=== PATIENT | female | born 1985 | race Caucasian/White ===

== ENCOUNTER 2021-01-30 13:36 | Emergency (ER) | payer SELFPAY ==
[~2021-01-30] VITALS: Ht 170.1 cm; Wt 74.8 kg
--- NOTE | 2021-01-30 14:25 | ED General ---
General Chief Complaint: Cough/Cold/Flu Symptoms Stated Complaint: ANXIETY Nursing Triage Note: Patient presents to the ED with c/o racing heart, fever, cough, fatigue, and body aches. She reports symptoms began on Monday. She states "I felt like my heart was racing". Reports it feels like anxiety. Source of Information: Patient History of Present Illness Date Seen by Provider: Jan 30, 2021 Time Seen by Provider: 13:41 Initial Comments 35-year-old female presenting with her and child due to concerns of her heart racing and being sick with fever, cough, fatigue, body aches since Monday. She has a underlying anxiety disorder anyway. She has not been feeling well and not drinking enough fluid. Her father had cardiomyopathy and she is worried that she has heart problems too. She had taken a medication from the [facility] that was in [place] medication with phenylephrine in it. She has felt like her heart was racing today and that made her anxious and she felt like "I was going to ". She tried to calm down at home but it was not helping so finally her , a local precinct police lieutenant, brought her and their daughter who was sick with similar symptoms to the emergency department Timing/Duration: 4-5 Days Severity: Moderate Modifying Factors: worse with Medication Associated Systoms: Chest Pain (from coughing), Cough, Diaphoresis, Fever/Chills, Headaches, Loss of Appetite, Malaise; No Nausea/Vomiting, No Rash, No Seizure; Shortness of Air; No Syncope; Weakness Allergies and Home Medications Allergies Coded Allergies: latex (Verified Allergy, Unknown, 01/30/21) Patient Home Medication List Home Medication List Reviewed: Yes Review of Systems Review of Systems Constitutional: chills, fever, malaise EENTM: hoarseness, nose congestion; No ear discharge, No hearing loss, No ear pain, No blurred vision, No double vision, No epistaxis, No nose pain, No throat pain Respiratory: cough, short of breath; No stridor, No wheezing Cardiovascular: see HPI; No edema; palpitations; No syncope, No vascular heart diseas Gastrointestinal: No abdominal pain, No nausea, No vomiting Genitourinary: No dysuria Musculoskeletal: muscle pain (generalized body aches) Skin: No change in color Psychiatric/Neurological: Anxiety Past Mkxvkln-Cmpeyh-Tkhjhk Hx Patient Social History Tobacco Use?: No Use of E-Cig and/or Vaping dev: No Substance use?: No Alcohol Use?: No Pt feels they are or have been: No Immunizations Up To Date First/Initial COVID19 Vaccinat: Not currently vaccinated Past Medical History Surgery/Hospitalization HX: Appendectomy Surgeries: Yes Appendectomy Physical Exam Vital Signs Vital Signs - First Documented 01/30/21 13:46 Temp 36.8 Pulse 92 Resp 18 B/P (MAP) 126/89 (101) Pulse Ox 93 O2 Delivery Room Air Capillary Refill : Less Than 3 Seconds Height, Weight, BMI Height: '" Weight: lbs. oz. kg; 25.00 BMI Method: General Appearance: WD/WN, Anxious HEENT: PERRL/EOMI, TMs Normal, Pharynx Normal; No Tonsillar Exudate Neck: Full Range of Motion, Normal Inspection, Non Tender, Supple Respiratory: Chest Non Tender, Lungs Clear, Normal Breath Sounds, No Accessory Muscle Use, No Respiratory Distress Cardiovascular: Regular Rate, Rhythm, Normal Peripheral Pulses Gastrointestinal: Normal Bowel Sounds, No Pulsatile Mass, Non Tender, Soft Rectal: Deferred Extremity: Normal Capillary Refill, Normal Inspection, No Pedal Edema Neurologic/Psychiatric: Alert, Oriented x3, No Motor/Sensory Deficits, metrology engineer II- XII Norm as Tested, Other (anxious) Skin: Normal Color, Warm/Dry Progress/Results/Core Measures Suspected Sepsis SIRS Temperature: Pulse: 92 Respiratory Rate: 18 Blood Pressure 126 /89 Mean: 101 Results/Orders Vital Signs/I&O 01/30/21 01/30/21 13:46 14:35 Temp 36.8 36.8 Pulse 92 92 Resp 18 18 B/P (MAP) 126/89 (101) 126/89 Pulse Ox 93 93 O2 Delivery Room Air Room Air Capillary Refill : Less Than 3 Seconds Blood Pressure Mean: 101 Progress Note : Progress Note Reassured patient that her heart rate and vital signs appear to be improved from what she described at home. This seemed to reassure her. Also counseled p atient that the phenylephrine component especially of the medicine she was taking can cause fast heart rate and anxiety as well as elevated blood pressure. Patient declined any further testing and did not want to have a chest x-ray or any swabs done to check for flu, RSV, Covid. Counseled patient about symptomatic care and treatment and advised to check back through the clinic if not improving or having more concerns Departure Impression Primary Impression: Heart palpitations Additional Impression: Upper respiratory infection with cough and congestion Disposition: 01 HOME, SELF-CARE Condition: Stable Departure-Patient Inst. Decision time for Depature: 14:23 Referrals: BROOKS CROWELL MD (PCP/Family) Primary Care Physician Patient Instructions: Palpitations ED, Upper Respiratory Infection ED Add. Discharge Instructions: Make sure to stay well-hydrated and drink plenty of fluids and water. Avoid using ghxc-wuq-liwyaqw cold medicines that might have phenylephrine or medicines that could affect your heart rate. It would be safe to use plain Mucinex or plain Robitussin as this would be guaifenesin and would thin the secretions and mucus to make it easier to drain and cough up If you felt you needed something additional you could use Coricidin BP meds over the counter as they specifically avoid medicines that will raise your heart rate or blood pressure. Check back with Dr. Crowell for continued symptoms and if worsening over the weekend you could return for further testing and evaluation All discharge instructions reviewed with patient and/or family. Voiced understanding. ANTHONY ESPINAL MD Jan 30, 2021 14:25
[2021-01-30 14:35] VITALS: BP 126/89
== END 2021-01-30 14:35 | disposition home or self-care (01) ==
LOC: ER FS 13:38
DX: J06.9 Acute upper respiratory infection, unspecified (principal); R00.2 Palpitations; Z88.8 Allergy status to other drugs, medicaments and biological substances
CPT/HCPCS: 99282

== ENCOUNTER → 2022-11-30 | Outpatient (CLI) | payer MEDICAID ==
--- NOTE | 2022-11-30 17:09 | Diagnostic Imaging Report ---
EXAMINATION: Left foot 3 views HISTORY: Foot pain COMPARISON: None available. FINDINGS: There are small calcifications projecting of the plantar fascia near the heel. No fracture. Alignment is normal. Joint spaces are normal. IMPRESSION: 1. Small calcifications projecting over the plantar fascia near the heel, correlate for plantar fasciitis. Dictated by: Dictated on workstation # [id number]
== END ==
LOC: RAD FS 10:54
PROVIDERS: ATTEND Family Medicine
DX: M79.672 Pain in left foot (principal)
CPT/HCPCS: 73630